=== PATIENT | male | born 2000 | race Caucasian/White ===

== ENCOUNTER 2023-09-10 09:32 | Outpatient (AMB) | payer OTHER, SELFPAY ==
[2023-09-10 09:55] VITALS: BP 130/82; PULSE 89; O2SAT 100; BMI 31.8
--- NOTE | 2023-09-10 09:55 | A.OFFPC_ITS ---
Vital Signs 09/10/23 09:55 Height 5 ft 8 in Weight 209 lb 6 oz BMI 31.8 BP 130/82 Blood Pressure Location Lt brachial Position Sitting Pulse 89 Pulse Source Pulse Oximeter Pulse Oximetry (%) 100 Oxygen Delivery Method Room Air Intake Visit Reasons: F/U missed 04/15/23 appt. Intake Note: Pt is here for a follow up pt is looking for an RX for Adderall since he was on it in the past when he was in school and he has a new job that requires a lot of paper work Allergies No Known Allergies [NO KNOWN ALLERGIES] Allergy (Unknown, Unverified 09/10/23 09:59) UNKNOWN Medication List - Last Reconciled 09/10/23 by WILLIAM Mariee bupropion HCl (Wellbutrin SR) 100 mg PO BEDTIME 90 days Tobacco use date assessed: 09/10/23 Dental Screening Dental Screen Date: 09/10/23 Did you have a dental visit in the last 12 months?: Yes Did you have a dental problem in the last 6 months where you did not have access to dental care?: No Was dental information given to patient?: Patient has dentist HPI F/U missed 04/15/23 appt. HPI Details Pt is here for a PE. Will order labs. Pt has a hx of ADHD. He was on adderall in the past. Pt would not like to see a psychiatrist at this time. Will send wellbutrin SR 100mg, titrate up to bid dosing. Pt will let me know via the portal how he is doing on this. [facility] Medical History Hernia Surgical History History of hand surgery History of appendectomy Family History Paternal Grandmother Diabetes Father Hypertension Social History Housing: Apartment Patient Tobacco Use Status: Former Tobacco user (4 years ago ) Tobacco use type: Cigarette Cigarette Packs Per Day: 1 Years Smoked: 2 years e-Cigarette/Vaping Use: Currently Using Current occupational status: employed Cognitive needs: No Hearing needs: No Vision needs: No Questionnaire PHQ-9 Over the last 2 weeks, how often have you been bothered by any of the following problems? 1. Little interest or pleasure in doing things: not at all 2. Feeling down, depressed, or hopeless: not at all 3. Trouble falling or staying asleep, or sleeping too much: not at all 4. Feeling tired or having little energy: several days 5. Poor appetite or overeating: not at all 6. Feeling bad about yourself - or that you are a failure or have let yourself or your family down: not at all 7. Trouble concentrating on things, such as reading the newspaper or watching television: not at all 8. Moving or speaking so slowly that other people could have noticed. Or the opposite - being so fidgety or restless that you have been moving around a lot more than usual: not at all 9. Thoughts that you would be better off or of hurting yourself in some way: not at all Total score: 1 Depression Screening Interpretation: Negative Depression Screening Done: Yes 55188 - PHQ-9 Billing: Yes Source: Developed by Drs. Cirilo Cordova, Mayte Lopez, Faisal Perea and colleagues, with an educational anitra from [employer]. Thrive Questionnaire Date Thrive assessed: 07/01/21 I am a: Patient What is your living situation today?: I have a steady place to live Within the past 12 months, did the food you bought not last and you didn't have the money to get more?: Never true Within the past 12 months, did you worry whether your food would run out before you got money to buy more?: Never true Do you have trouble paying for medicines?: No Do you have trouble getting transportation to medical appointments?: No Do you have trouble paying your heating and electricity bill?: No Do you have trouble taking care of your child, family member or friend?: No Do you have trouble with day-to-day activities such as bathing, preparing meals, shopping, managing finances, etc.?: No Are you currently unemployed and looking for a job?: Yes Are you interested in more education?: No Please select the resources that you would like help with: None Currently or been in a relationship where the following occur: no concerns reported THRIVE Score: 0 AUDIT C Alcohol Use Questionnaire (AUDIT-C) 1. How often do you have a drink containing alcohol?: Never 3. How often do you have six or more drinks on one occasion?: Never Total Score: 0 ANY-7 AMB Questionnaire ANY-7 Date ANY - 7 assessed: 09/10/23 Feeling nervous, anxious, or on edge: 0 = Not at all Not being able to stop or control worryin = Not at all Worrying too much about different things: 0 = Not at all Trouble relaxin = Several days Being so restless that it is hard to sit still: 0 = Not at all Becoming easily annoyed or irritable: 0 = Not at all Feeling afraid as if something awful might happen: 0 = Not at all Total ANY-7 score (0-4 normal; 5-9 mild; 10-14 moderate; 15-21 severe): 1 Source: Developed by Drs. Cirilo Cordova, Mayte Lopez, Faisal Perea and colleagues, with an educational anitra from [employer]. Review of Systems Const Denies chills and Denies fever(s) Eyes Denies blurry vision ENT Denies vertigo, Denies dizziness and Denies sore throat Card Denies chest pain at rest, Denies chest pain with activity, Denies diaphoresis, Denies dyspnea and Denies dyspnea on exertion Resp Denies cough, Denies dyspnea, Denies dyspnea on exertion and Denies wheezing GI Denies abdominal pain, Denies melena, Denies hematochezia, Denies constipation, Denies diarrhea and Denies loose stools Denies hematuria Musc Denies numbness and Denies tingling Skin/Breast Denies lesions Neuro Denies vertigo, Denies dizziness, Denies numbness and Denies tingling Psych Denies anxiety, Denies depression, Denies homicidal ideation, Denies suicidal ideation and Denies other (substance abuse) Aller/Immun Denies wheezing Physical exam (Primary Care) Vital Signs: Last Vital Signs Pulse 89 09/10/23 09:55 BP 130/82 09/10/23 09:55 Pulse Ox 100 09/10/23 09:55 Oxygen Delivery Method Room Air 09/10/23 09:55 BMI result Body Mass Index 31.8 Tobacco/Smoking Status: Tobacco use Status Tobacco use date assessed 09/10/23 09/10/23 10:01 Patient Tobacco Use Status Former Tobacco user (4 years 09/10/23 09:56 ago ) Tobacco use type Cigarette 09/10/23 09:56 e-Cigarette/Vaping Use Currently Using 09/10/23 09:56 PHQ-9: PHQ-9 Score PHQ-9: Total score 1 09/10/23 10:09 Depression Screening Interpretation: Negative Thrive Assessment: Date of Thrive Assessment Date Thrive assessed 07/01/21 09/10/23 09:56 Currently or been in a relationship where the following occur: no concerns reported Const General: cooperative Nutritional Appearance: obese Orientation/consciousness: patient oriented x3 HENMT Head: Yes normal to inspection, Yes normocephalic and Yes atraumatic Ears: TM's normal bilaterally Eyes General: appearance normal, both eyes and all related structures Alignment and Position: alignment normal and position normal Neck Neck: Yes normal visual inspection and Yes no lymphadenopathy Thyroid: Thyroid normal Resp Effort & Inspection: normal respiratory effort Auscultation: clear to auscultation bilaterally Cardio Rate: regular rate Rhythm: regular rhythm Heart sounds: S1 normal heart sound present, S2 normal heart sound present and no murmurs GI Palpation (GI): Soft to palpation and nontender Auscultation: normal bowel sounds Male General Exam: Yes normal external exam Penis: normal penis Scrotum: scrotum normal, testes descended bilaterally and no inguinal hernias Testes: no testicular mass Skin Rashes: no rashes Neuro General: patient oriented x3, moves all extremities, no focal motor deficits and deep tendon reflexes 2+ bilaterally Romberg Test: Negative Psych Appearance: grossly normal Mental Status: mental status grossly normal Speech and movement: Normal speech and movement present Affect: normal affect Attitude: cooperative Thought process: Normal thought process present Thought content: Normal thought content present Insight: Good insight present (Psych) Judgement: Good judgement present (Psych) Assessment and Plan Assessment & Plan (1) Physical exam: Code(s): Z00.00 - Encounter for general adult medical examination without abnormal findings Plan: Labs ordered (2) ADHD: Code(s): F90.9 - Attention-deficit hyperactivity disorder, unspecified type Plan The patient agreed to the use of a medical services manager for this encounter. Scribed for JOSUÉ Knight-SAM by Michelle Crook, medical services manager, on 09/10/2023 at 10:05 EST. Orders: Orders Comprehensive [place]. Panel Fast Today Z00.00 - Encounter for general adult medical examination without abnormal findings UA CC w/rflx Micro + Cult Today Z00.00 - Encounter for general adult medical examination without abnormal findings Complete Blood Count Auto Diff Today Z00.00 - Encounter for general adult medical examination without abnormal findings TSH reflex Free T4 Today Z00.00 - Encounter for general adult medical examination without abnormal findings Lipid Panel Today Z00.00 - Encounter for general adult medical examination without abnormal findings Medications: New bupropion HCl (Wellbutrin SR) first 3 weeks, one tab a day, then go up to twice a day dosing 100 mg PO BID 180 tabs 0RF 90 days bupropion HCl (Wellbutrin SR) 100 mg PO BEDTIME 90 days 90 tabs 0RF Coding Level of Care Code Est Pt Prev Care 18-39y(80527) Diagnoses Physical exam Z00.00 ADHD F90.9
== END 2023-09-10 10:26 | disposition home or self-care (01) ==
PROVIDERS: PCP Nurse Practitioner Family; Visit Provider Nurse Practitioner Family
DX: Z00.00 Encounter for general adult medical examination without abnormal findings (principal); F90.9 Attention-deficit hyperactivity disorder, unspecified type
CPT/HCPCS: 99395